=== PATIENT | male | born 1950 | race Caucasian/White ===

== ENCOUNTER → 2018-08-01 | Day surgery (SDC) | payer MEDICARE, OTHER ==
[2018-07-27 15:01] LABS: BASOPHILS % 0.5 % (0.0-1.0); EOSINOPHILS # (AUTO) 0.2 (0.0-0.4); EOSINOPHILS % 2.3 % (0.0-6.0); HEMATOCRIT 45.4 % (38.2-49.6); HEMOGLOBIN 14.8 g/dL (14.0-18.0); LYMPHOCYTES # (AUTO) 2.5 (1.0-3.2); LYMPHOCYTES % 31.7 % (18.0-39.1); MEAN CORPUSCULAR HEMOGLOBIN 30.5 pg (28-32); MEAN CORPUSCULAR HGB CONC 32.6 g/dL (31-35); MEAN CORPUSCULAR VOLUME 93.6 fL (81-99); MONOCYTES # (AUTO) 0.6 (0.2-0.8); MONOCYTES % 7.8 % (4.4-11.3); NEUTROPHILS # (AUTO) 4.5 (2.1-6.9); NEUTROPHILS % 57.3 % (38.7-80.0); PLATELET COUNT 169 x10e3/uL (140-360); RED BLOOD COUNT 4.85 x10e6/uL (4.3-5.7); RED CELL DISTRIBUTION WIDTH 14.6 % (11.7-14.4)
[~2018-08-01] MED LIST: ASPIR 8181 MG PO; FENTANYL CITRATE/PF 100MCG/2 ML INJ ONE; GABAPENTIN300 MG PO; GLIPIZIDE5 MG PO; HYOSCYAMINE SULFATE 0.5 MG/ML INJ ONE; LIPITOR10 MG PO; LISINOPRIL10 MG PO; MIDAZOLAM HCL 2 MG/2 ML VIAL ONE; PHENYLEPHRINE HCL 1% 10 MG/ML VIAL ONE; PLAVIX75 MG PO; PROPOFOL IV EMULSION 10 MG/ML 50 ML VIAL ONE
--- OUTSIDE RECORDS SUMMARY | 2018-08-01 07:01 | XMS REPORT ---
Author Author [facility] Address Unknown Phone Unavailable Care Team Providers Care Feed Crusher Name Role Phone Unavailable Unavailable Payers Payer Name Policy Type Policy Number Effective Date Expiration Date Problems This patient has no known problems. Allergies, Adverse Reactions, Alerts Allergy Name Allergy Type Status Severity Reaction(s) Onset Date Inactive Date Treating Clinician Comments gabapentin DA Active [place] 2018-05-12 00:00:00 Medications This patient has no known medications.
--- OUTSIDE RECORDS SUMMARY | 2018-08-01 07:01 | XMS REPORT | Clinical Summary ---
Author Author [facility] Address Unknown Phone Unavailable Care Team Providers Care Salvage Winder And Inspector Name Role Phone Asif Hernandez MD PCP Allergies No Known Allergies Medications End Date Status Medication Sig Dispensed Refills Start Date Active atorvastatin (LIPITOR) 80 Take 80 mg by 0 MG tablet mouth daily. Active glipiZIDE (GLUCOTROL) 10 Take 10 mg by 0 MG tablet mouth 2 (two) times a day before meals. Active aspirin (ECOTRIN) 81 MG Take 81 mg by 0 enteric coated tablet mouth daily. Active clopidogrel (PLAVIX) 75 Take 75 mg by 0 mg tablet mouth daily. Active lisinopril Take 1.5 45 tablet 0 (PRINIVIL,ZESTRIL) 10 mg tablets (15 8 tablet mg total) by mouth daily for 30 days. 06/03/2019 Active metoprolol tartrate Take 1 tablet 60 tablet 11 (LOPRESSOR) 25 mg tablet (25 mg total) 8 by mouth 2 (two) times a day. 06/03/2018 Discontinued lisinopril Take 10 mg by 0 (PRINIVIL,ZESTRIL) 10 mg mouth daily. tablet 06/17/2018 acetaminophen-codeine Take 1 tablet 15 tablet 0 (TYLENOL WITH CODEINE #3) by mouth 8 300-30 mg per tablet every 4 (four) hours as needed for moderate pain for up to 14 days. Active Problems Problem Noted Date Carotid stenosis 06/01/2018 Post-op pain 06/01/2018 S/P carotid endarterectomy 06/01/2018 Type 2 diabetes mellitus with diabetic peripheral angiopathy without 06/01/2018 gangrene, without long-term current use of insulin Tobacco use 06/01/2018 PVD (peripheral vascular disease) 06/01/2018 Essential hypertension 06/01/2018 Encounters Care Team Description Date Type Specialty Gary Lee Ann PAD (peripheral artery disease) (HCC) (Primary Dx) 06/21/2018 Orders Only Cardiovascular Gama Ramirez MD Persistent postoperative fistula, initial encounter (Primary Dx) 06/20/2018 Lab Lab Gama Ramirez MD Postoperative wound sinus, initial encounter (Primary Dx) 06/20/2018 Office Visit Cardiovascular Vanessa Hays, PharmD 06/06/2018 Patient Quality Outreach Gama Ramirez MD LEFT CAROTID ENDARTERECTOMY 06/01/2018 Surgery Cardiothoracic Surgery Shanna Trejo MD 06/01/2018 Anesthesia Cardiothoracic Surgery Event Gama Ramirez MD High dependence on smoking (Primary Dx); Arteriosclerosis of carotid artery, left; Stenosis of left carotid artery; S/P carotid endarterectomy 06/01/2018 Hospital Cardiovascular - Encounter 06/03/2018 Gama Ramirez MD Stenosis of left carotid artery (Primary Dx) 05/29/2018 Office Visit Cardiovascular after 07/31/2017 Immunizations Name Dates Previously Given Next Due FLUZONE HIGH-DOSE PF 06/03/2018 Family History Medical History Relation Name Comments Lung cancer Father Relation Name Status Comments Father Mother Social History Date Tobacco Use Types Packs/Day Years Used Current Every Day Smoker Cigarettes 2 54 Smokeless Tobacco: Never Used Alcohol Use Drinks/Week oz/Week Comments Yes occasional Sex Assigned at Date Recorded Not on file Industry Job Start Date Occupation Not on file Not on file Not on file Travel End Travel History Travel Start No recent travel history available. Last Filed Vital Signs Time Taken Vital Sign Reading 06/03/2018 7:21 AM APPLICATIONS SYSTEMS ANALYST Blood Pressure 164/80 06/03/2018 7:21 AM APPLICATIONS SYSTEMS ANALYST Pulse 66 06/03/2018 7:21 AM APPLICATIONS SYSTEMS ANALYST Temperature 36 C (96.8 F) 06/03/2018 7:21 AM APPLICATIONS SYSTEMS ANALYST Respiratory Rate 12 06/03/2018 7:21 AM APPLICATIONS SYSTEMS ANALYST Oxygen Saturation 98% - Inhaled Oxygen - Concentration 06/03/2018 4:44 AM APPLICATIONS SYSTEMS ANALYST Weight 89.1 kg (196 lb 8 oz) 06/01/2018 5:52 AM APPLICATIONS SYSTEMS ANALYST Height 185.4 cm (6' 1") 06/03/2018 4:44 AM APPLICATIONS SYSTEMS ANALYST Body Mass Index 25.93 Plan of Treatment Care Team Description Date Type Specialty Boris Kidd MD [address] [facility] [address] [place], [place] [id number] 08/14/2018 Appointment Procedural Cardiology Boris Kidd MD [address] [facility] [address] [place] [address] [phone] 08/14/2018 Office Visit Cardiovascular Health Maintenance Due Date Last Done Comments DIABETIC RETINAL EYE EXAM 1948 DIABETIC FOOT EXAM 1958 URINE MICROALBUMIN 1958 COLON CANCER SCREENING 1998 SHINGLES VACCINES (1 of 1998 2) PNEUMOCOCCAL 2013 POLYSACCHARIDE VACCINE AGE 65 AND OVER PNEUMOCOCCAL-13 2013 INFLUENZA VACCINE Completed 06/03/2018 Implants Device Identifier Shelf Expiration Date Model / Serial / Lot Implanted Type Area Manufactur er 01/10/2023 [id number] / / Clip Ligtng Weck Hemoclip Plus W/ Medical N/A: N/A TELEFLEX Tape Ti Med - [id number] Clips for MEDICAL Implanted: Qty: 1 on 06/01/2018 by Internal Gama Ramirez MD Use 03/14/2022 [id number] / / [id number] Kit Shunt Crtd Artery Rdopq Line Surgical N/A: N/A COVIDIEN 6in [place] - [id number] Implants; MARLI Implanted: 06/01/2018 (Quantity not Expanders; HEALTHCARE on file) Extenders; Surgical Wires 05/23/2022 [id number] / / [id number] Kit Shunt Crtd Artery Rdopq Line Surgical N/A: N/A COVIDIEN 6in [place] - [id number] Implants; MARLI Implanted: 06/01/2018 (Quantity not Expanders; HEALTHCARE on file) Extenders; Surgical Wires 12/22/2022 [id number] / / [id number] Fabric Vasclr Grft Velour 3in 3in Vascular N/A: N/A ATRIUM 0.8cm 7.6cm Scott Hemashield - Graft MEDICAL [id number] Implanted: Qty: 1 on 06/01/2018 by Gama Ramirez MD Procedures Comments Procedure Name Priority Date/Time Associated Diagnosis GRAM STAIN Routine 06/20/2018 4:30 PM APPLICATIONS SYSTEMS ANALYST AEROBIC CULTURE Routine 06/20/2018 Persistent postoperative 4:30 PM APPLICATIONS SYSTEMS ANALYST fistula, initial encounter POC GLUCOSE Routine 06/03/2018 8:03 AM APPLICATIONS SYSTEMS ANALYST CBC HEMOGRAM Routine 06/03/2018 5:22 AM APPLICATIONS SYSTEMS ANALYST ESTIMATED GFR Routine 06/03/2018 12:00 AM APPLICATIONS SYSTEMS ANALYST PHOSPHORUS LEVEL Routine 06/03/2018 12:00 AM APPLICATIONS SYSTEMS ANALYST IONIZED CALCIUM Routine 06/03/2018 12:00 AM APPLICATIONS SYSTEMS ANALYST MAGNESIUM LEVEL Routine 06/03/2018 12:00 AM APPLICATIONS SYSTEMS ANALYST BASIC METABOLIC PANEL Routine 06/03/2018 12:00 AM APPLICATIONS SYSTEMS ANALYST POC GLUCOSE Routine 06/02/2018 9:11 PM APPLICATIONS SYSTEMS ANALYST POC GLUCOSE Routine 06/02/2018 5:15 PM APPLICATIONS SYSTEMS ANALYST POC GLUCOSE Routine 06/02/2018 11:25 AM APPLICATIONS SYSTEMS ANALYST POC GLUCOSE Routine 06/02/2018 7:49 AM APPLICATIONS SYSTEMS ANALYST XR CHEST 1 VW PORTABLE Routine 06/02/2018 6:53 AM APPLICATIONS SYSTEMS ANALYST POC GLUCOSE Routine 06/02/2018 5:12 AM APPLICATIONS SYSTEMS ANALYST MAGNESIUM LEVEL Routine 06/02/2018 2:25 AM APPLICATIONS SYSTEMS ANALYST ESTIMATED GFR Routine 06/02/2018 2:25 AM APPLICATIONS SYSTEMS ANALYST PHOSPHORUS LEVEL Routine 06/02/2018 2:25 AM APPLICATIONS SYSTEMS ANALYST IONIZED CALCIUM Routine 06/02/2018 2:25 AM APPLICATIONS SYSTEMS ANALYST BASIC METABOLIC PANEL Routine 06/02/2018 2:25 AM APPLICATIONS SYSTEMS ANALYST HC COMPLETE BLD COUNT Routine 06/02/2018 W/AUTO DIFF 2:25 AM APPLICATIONS SYSTEMS ANALYST POC GLUCOSE Routine 06/02/2018 12:25 AM APPLICATIONS SYSTEMS ANALYST POC GLUCOSE Routine 06/01/2018 7:37 PM APPLICATIONS SYSTEMS ANALYST POC GLUCOSE Routine 06/01/2018 3:59 PM APPLICATIONS SYSTEMS ANALYST XR CHEST 1 VW PORTABLE Routine 06/01/2018 12:02 PM APPLICATIONS SYSTEMS ANALYST ECG 12-LEAD Routine 06/01/2018 11:33 AM APPLICATIONS SYSTEMS ANALYST POC GLUCOSE Routine 06/01/2018 10:44 AM APPLICATIONS SYSTEMS ANALYST ESTIMATED GFR Routine 06/01/2018 10:43 AM APPLICATIONS SYSTEMS ANALYST BASIC METABOLIC PANEL Routine 06/01/2018 10:43 AM APPLICATIONS SYSTEMS ANALYST PROTHROMBIN TIME WITH INR Routine 06/01/2018 10:43 AM APPLICATIONS SYSTEMS ANALYST PARTIAL THROMBOPLASTIN Routine 06/01/2018 TIME (PTT) 10:43 AM APPLICATIONS SYSTEMS ANALYST HC COMPLETE BLD COUNT Routine 06/01/2018 W/AUTO DIFF 10:43 AM APPLICATIONS SYSTEMS ANALYST IONIZED CALCIUM Routine 06/01/2018 10:43 AM APPLICATIONS SYSTEMS ANALYST PHOSPHORUS LEVEL Routine 06/01/2018 10:43 AM APPLICATIONS SYSTEMS ANALYST MAGNESIUM LEVEL Routine 06/01/2018 10:43 AM APPLICATIONS SYSTEMS ANALYST ARTERIAL LINE Routine 06/01/2018 10:38 AM APPLICATIONS SYSTEMS ANALYST ACTIVATED CLOTTING TIME Routine 06/01/2018 9:56 AM APPLICATIONS SYSTEMS ANALYST IONIZED CALCIUM, ARTERIAL STAT 06/01/2018 9:30 AM APPLICATIONS SYSTEMS ANALYST HEMOGLOBIN, SYRINGE STAT 06/01/2018 9:30 AM APPLICATIONS SYSTEMS ANALYST GLUCOSE LEVEL, SYRINGE STAT 06/01/2018 9:30 AM APPLICATIONS SYSTEMS ANALYST SODIUM LEVEL, SYRINGE STAT 06/01/2018 9:30 AM APPLICATIONS SYSTEMS ANALYST POTASSIUM, SYRINGE STAT 06/01/2018 9:30 AM APPLICATIONS SYSTEMS ANALYST ARTERIAL BLOOD GAS STAT 06/01/2018 9:30 AM APPLICATIONS SYSTEMS ANALYST ACTIVATED CLOTTING TIME Routine 06/01/2018 9:26 AM APPLICATIONS SYSTEMS ANALYST ACTIVATED CLOTTING TIME Routine 06/01/2018 9:20 AM APPLICATIONS SYSTEMS ANALYST ACTIVATED CLOTTING TIME Routine 06/01/2018 9:12 AM APPLICATIONS SYSTEMS ANALYST LACTIC ACID, SYRINGE STAT 06/01/2018 9:08 AM APPLICATIONS SYSTEMS ANALYST IONIZED CALCIUM, ARTERIAL STAT 06/01/2018 9:08 AM APPLICATIONS SYSTEMS ANALYST POTASSIUM, SYRINGE STAT 06/01/2018 9:08 AM APPLICATIONS SYSTEMS ANALYST GLUCOSE LEVEL, SYRINGE STAT 06/01/2018 9:08 AM APPLICATIONS SYSTEMS ANALYST HEMOGLOBIN, SYRINGE STAT 06/01/2018 9:08 AM APPLICATIONS SYSTEMS ANALYST SODIUM LEVEL, SYRINGE STAT 06/01/2018 9:08 AM APPLICATIONS SYSTEMS ANALYST ARTERIAL BLOOD GAS, STAT 06/01/2018 CORRECTED 9:08 AM APPLICATIONS SYSTEMS ANALYST ACTIVATED CLOTTING TIME Routine 06/01/2018 9:05 AM APPLICATIONS SYSTEMS ANALYST SURGICAL PATHOLOGY Routine 06/01/2018 REQUEST 8:57 AM APPLICATIONS SYSTEMS ANALYST IONIZED CALCIUM, ARTERIAL STAT 06/01/2018 8:03 AM APPLICATIONS SYSTEMS ANALYST GLUCOSE LEVEL, SYRINGE STAT 06/01/2018 8:03 AM APPLICATIONS SYSTEMS ANALYST POTASSIUM, SYRINGE STAT 06/01/2018 8:03 AM APPLICATIONS SYSTEMS ANALYST HEMOGLOBIN, SYRINGE STAT 06/01/2018 8:03 AM APPLICATIONS SYSTEMS ANALYST SODIUM LEVEL, SYRINGE STAT 06/01/2018 8:03 AM APPLICATIONS SYSTEMS ANALYST ARTERIAL BLOOD GAS STAT 06/01/2018 8:03 AM APPLICATIONS SYSTEMS ANALYST CENTRAL LINE Routine 06/01/2018 7:49 AM APPLICATIONS SYSTEMS ANALYST ARTERIAL LINE Routine 06/01/2018 7:46 AM APPLICATIONS SYSTEMS ANALYST ACTIVATED CLOTTING TIME Routine 06/01/2018 7:41 AM APPLICATIONS SYSTEMS ANALYST OH AN ELECTIVE Routine 06/01/2018 ENDOTRACHEAL AIRWAY 7:37 AM APPLICATIONS SYSTEMS ANALYST XR CHEST 1 VW PORTABLE STAT 06/01/2018 7:04 AM APPLICATIONS SYSTEMS ANALYST ECG PRE/POST OP Routine 06/01/2018 6:16 AM APPLICATIONS SYSTEMS ANALYST POC GLUCOSE Routine 06/01/2018 6:05 AM APPLICATIONS SYSTEMS ANALYST PREPARE RBC Timed 06/01/2018 5:37 AM APPLICATIONS SYSTEMS ANALYST PREPARE RBC Routine 06/01/2018 5:37 AM APPLICATIONS SYSTEMS ANALYST ESTIMATED GFR Routine 06/01/2018 5:37 AM APPLICATIONS SYSTEMS ANALYST TYPE AND SCREEN Routine 06/01/2018 5:37 AM APPLICATIONS SYSTEMS ANALYST HEMOGLOBIN A1C Routine 06/01/2018 5:37 AM APPLICATIONS SYSTEMS ANALYST PARTIAL THROMBOPLASTIN Routine 06/01/2018 TIME (PTT) 5:37 AM APPLICATIONS SYSTEMS ANALYST PROTHROMBIN TIME WITH INR Routine 06/01/2018 5:37 AM APPLICATIONS SYSTEMS ANALYST COMPREHENSIVE METABOLIC Routine 06/01/2018 PANEL 5:37 AM APPLICATIONS SYSTEMS ANALYST HC COMPLETE BLD COUNT Routine 06/01/2018 W/AUTO DIFF 5:37 AM APPLICATIONS SYSTEMS ANALYST after 07/31/2017 Results * Aerobic culture (06/20/2018 4:30 PM APPLICATIONS SYSTEMS ANALYST) Aerobic culture isolate Staphylococcus aureus [facility] This organism is Methicillin Resistant. (A) Comment: Specimen Information Specimen Source: Wound Specimen Site: Sinus Aerobic culture isolate Staphylococcus, coagulase [facility] () Specimen Wound - Sinus Antibiotic Method Susceptibility Organism Ampicillin BRENDEN mcg/mL: Resistant Staphylococcus aureus Clindamycin BRENDEN <=0.5 mcg/mL: Susceptible Staphylococcus aureus Cefazolin BRENDEN mcg/mL: Resistant Staphylococcus aureus Erythromycin BRENDEN >4 mcg/mL: Resistant Staphylococcus aureus Linezolid BRENDEN <=1 mcg/mL: Susceptible Staphylococcus aureus Minocycline BRENDEN <=1 mcg/mL: Susceptible Staphylococcus aureus Oxacillin BRENDEN >2 mcg/mL: Resistant Staphylococcus aureus Penicillin G BRENDEN >1 mcg/mL: Resistant Staphylococcus aureus Rifampin BRENDEN <=0.5 mcg/mL: Susceptible Staphylococcus aureus Trimethoprim/Sulfamethoxazole BRENDEN <=0.5/9.5 mcg/mL: Susceptible Staphylococcus aureus Tetracycline BRENDEN <=0.5 mcg/mL: Susceptible Staphylococcus aureus Vancomycin BRENDEN 1 mcg/mL: Susceptible Staphylococcus aureus Performing Organization Address City/[facility] Phone Number [facility] DEPARTMENT OF [address] [place] [address] PATHOLOGY AND GENOMIC MEDICINE [address] * Gram stain (06/20/2018 4:30 PM APPLICATIONS SYSTEMS ANALYST) Gram stain isolate Occasional WBC's RASHARD NOIST Rare Gram positive cocci in HOSPITAL clusters Comment: Specimen Information Specimen Source: Wound Specimen Site: Sinus Specimen Wound - Sinus Performing Organization Address [facility] Phone Number [facility] DEPARTMENT OF [address] [place] [address] PATHOLOGY AND GENOMIC MEDICINE [address] * POC glucose (06/03/2018 8:03 AM APPLICATIONS SYSTEMS ANALYST) Only the most recent of 11 results within the time period is included. POC glucose 176 (H) 65 - 99 mg/dL [facility] DEPARTMENT OF Comment: PATHOLOGY AND [facility] Notified RN GENOMIC MEDICINE Meter ID: [id number] Gear Repair Supervisor: Jasmyn Ramirez Performing Organization Address [facility] Phone Number [facility] DEPARTMENT OF [address] [place] [address] PATHOLOGY AND GENOMIC MEDICINE * CBC hemogram (06/03/2018 5:22 AM APPLICATIONS SYSTEMS ANALYST) WBC 9.02 4.50 - 11.00 k/uL [facility] DEPARTMENT OF PATHOLOGY AND GENOMIC MEDICINE RBC 4.11 (L) 4.40 - 6.00 m/uL [facility] DEPARTMENT OF PATHOLOGY AND GENOMIC MEDICINE HGB 12.2 (L) 14.0 - 18.0 g/dL [facility] DEPARTMENT OF PATHOLOGY AND GENOMIC MEDICINE HCT 37.6 (L) 41.0 - 51.0 % [facility] DEPARTMENT OF PATHOLOGY AND GENOMIC MEDICINE MCV 91.5 82.0 - 100.0 fL [facility] DEPARTMENT OF PATHOLOGY AND GENOMIC MEDICINE MCH 29.7 27.0 - 34.0 pg [facility] DEPARTMENT OF PATHOLOGY AND GENOMIC MEDICINE MCHC 32.4 31.0 - 37.0 g/dL [facility] DEPARTMENT OF PATHOLOGY AND GENOMIC MEDICINE RDW - SD 49.4 37.0 - 55.0 fL [facility] DEPARTMENT OF PATHOLOGY AND GENOMIC MEDICINE MPV 10.6 8.8 - 13.2 fL [facility] DEPARTMENT OF PATHOLOGY AND GENOMIC MEDICINE Platelet count 137 (L) 150 - 400 k/uL [facility] DEPARTMENT OF PATHOLOGY AND GENOMIC MEDICINE Nucleated RBC 0.00 /100 WBC [facility] DEPARTMENT OF PATHOLOGY AND GENOMIC MEDICINE Specimen Blood Performing Organization Address City/[facility] [place] [address] PATHOLOGY AND [employer] MEDICINE * Estimated GFR (06/03/2018 12:00 AM APPLICATIONS SYSTEMS ANALYST) Only the most recent of 4 results within the time period is included. Estimated GFR 82 mL/min/1.73 m2 [facility] DEPARTMENT OF Comment: PATHOLOGY AND [employer] GENOMIC MEDICINE rpretation G1 >=90 Normal or high G2 60-89Mildly decreased P1z18-85 Mildly to moderately decreased H1x24-34 Moderately to severely decreased G4 15-29Severely decreased G5 <15Kidney failure The eGFR was calculated using the Chronic Kidney Disease Epidemiology Collaboration (CKD-EPI) equation. Interpretation is based on recommendations of the National Kidney Foundation-Kidney Disease Outcomes Quality Initiative (NKF-KDOQI) published in 2014. Specimen Plasma specimen Performing Organization Address City/[facility] Phone Number [facility] [place] [address] PATHOLOGY AND [employer] MEDICINE * Phosphorus level (06/03/2018 12:00 AM APPLICATIONS SYSTEMS ANALYST) Only the most recent of 3 results within the time period is included. Phosphorus 3.4 2.4 - 4.5 mg/dL [facility] DEPARTMENT OF PATHOLOGY AND GENOMIC MEDICINE Specimen Plasma specimen Performing Organization Address City/[facility] Phone Number [facility] [place] [address] PATHOLOGY AND [employer] MEDICINE * Magnesium level (06/03/2018 12:00 AM APPLICATIONS SYSTEMS ANALYST) Only the most recent of 3 results within the time period is included. Magnesium 2.1 1.6 - 2.4 mg/dL [facility] DEPARTMENT OF PATHOLOGY AND GENOMIC MEDICINE Specimen Plasma specimen Performing Organization Address City/[facility] [place] [address] PATHOLOGY AND [facility] * Ionized calcium (06/03/2018 12:00 AM APPLICATIONS SYSTEMS ANALYST) Only the most recent of 3 results within the time period is included. pH 7.38 [facility] DEPARTMENT OF PATHOLOGY AND GENOMIC MEDICINE Ionized calcium 1.14 1.11 - 1.32 mmol/L [facility] DEPARTMENT OF PATHOLOGY AND GENOMIC MEDICINE Specimen Plasma specimen Performing Organization Address City/[facility] Phone Number [facility] [place] [address] PATHOLOGY AND GENOMIC MEDICINE * Basic metabolic panel (06/03/2018 12:00 AM APPLICATIONS SYSTEMS ANALYST) Only the most recent of 3 results within the time period is included. Sodium 139 135 - 148 mEq/L [facility] DEPARTMENT OF PATHOLOGY AND GENOMIC MEDICINE Potassium 4.4 3.5 - 5.0 mEq/L [facility] DEPARTMENT OF PATHOLOGY AND GENOMIC MEDICINE Chloride 104 98 - 112 mEq/L [facility] DEPARTMENT OF PATHOLOGY AND GENOMIC MEDICINE CO2 23 (L) 24 - 31 mEq/L [facility] DEPARTMENT OF PATHOLOGY AND GENOMIC MEDICINE Anion gap 12@ANIO 7 - 15 mEq/L [facility] DEPARTMENT OF PATHOLOGY AND GENOMIC MEDICINE BUN 17 8 - 23 mg/dL [facility] DEPARTMENT OF PATHOLOGY AND GENOMIC MEDICINE Creatinine 0.94 0.70 - 1.20 mg/dL [facility] DEPARTMENT OF PATHOLOGY AND GENOMIC MEDICINE Glucose 132 (H) 65 - 99 mg/dL [facility] DEPARTMENT OF PATHOLOGY AND GENOMIC MEDICINE Calcium 9.0 8.8 - 10.2 mg/dL [facility] DEPARTMENT OF PATHOLOGY AND GENOMIC MEDICINE Specimen Plasma specimen Performing Organization Address City/[facility] Phone Number [facility] [place] [address] PATHOLOGY AND GENOMIC MEDICINE * XR Chest 1 Vw Portable (06/02/2018 6:53 AM APPLICATIONS SYSTEMS ANALYST) Only the most recent of 3 results within the time period is included. Narrative Performed At EXAMINATION:XR CHEST 1 VW PORTABLE RADIANT CLINICAL HISTORY:ICU ptstable with no clinical status changes COMPARISON:June 01, 2018 IMPRESSION: Support devices project in stable position. [id number] Procedure Note Interface, Radiology Results Incoming - 06/02/2018 7:26 AM APPLICATIONS SYSTEMS ANALYST EXAMINATION: XR CHEST 1 VW PORTABLE CLINICAL HISTORY: ICU pt stable with no clinical status changes COMPARISON: June 01, 2018 IMPRESSION: Support devices project in stable position. [id number] Performing Organization Address City/[facility]/Zipcode Phone Number [facility] [address] [place] [address] * CBC with platelet and differential (06/02/2018 2:25 AM APPLICATIONS SYSTEMS ANALYST) Only the most recent of 3 results within the time period is included. WBC 8.49 4.50 - 11.00 k/uL [facility] DEPARTMENT OF PATHOLOGY AND GENOMIC MEDICINE RBC 3.92 (L) 4.40 - 6.00 m/uL [facility] DEPARTMENT OF PATHOLOGY AND GENOMIC MEDICINE HGB 11.7 (L) 14.0 - 18.0 g/dL [facility] DEPARTMENT OF PATHOLOGY AND GENOMIC MEDICINE HCT 35.4 (L) 41.0 - 51.0 % [facility] DEPARTMENT OF PATHOLOGY AND GENOMIC MEDICINE MCV 90.3 82.0 - 100.0 fL [facility] DEPARTMENT OF PATHOLOGY AND GENOMIC MEDICINE MCH 29.8 27.0 - 34.0 pg [facility] DEPARTMENT OF PATHOLOGY AND GENOMIC MEDICINE MCHC 33.1 31.0 - 37.0 g/dL [facility] DEPARTMENT OF PATHOLOGY AND GENOMIC MEDICINE RDW - SD 47.9 37.0 - 55.0 fL [facility] DEPARTMENT OF PATHOLOGY AND GENOMIC MEDICINE MPV 10.3 8.8 - 13.2 fL [facility] DEPARTMENT OF PATHOLOGY AND GENOMIC MEDICINE Platelet count 123 (L) 150 - 400 k/uL [facility] DEPARTMENT OF PATHOLOGY AND GENOMIC MEDICINE Nucleated RBC 0.00 /100 WBC [facility] DEPARTMENT OF PATHOLOGY AND GENOMIC MEDICINE Neutrophils 72.8 (H) 39.0 - 69.0 % [facility] DEPARTMENT OF PATHOLOGY AND GENOMIC MEDICINE Lymphocytes 17.8 (L) 25.0 - 45.0 % [facility] DEPARTMENT OF PATHOLOGY AND GENOMIC MEDICINE Monocytes 6.5 0.0 - 10.0 % [facility] DEPARTMENT OF PATHOLOGY AND GENOMIC MEDICINE Eosinophils 2.5 0.0 - 5.0 % [facility] DEPARTMENT OF PATHOLOGY AND GENOMIC MEDICINE Basophils 0.2 0.0 - 1.0 % [facility] DEPARTMENT OF PATHOLOGY AND GENOMIC MEDICINE Immature granulocytes 0.2Comment: "Immature 0.0 - 1.0 % [facility] DEPARTMENT OF granulocytes" (promyelocytes, PATHOLOGY AND myelocytes, metamyelocytes) [facility] Specimen Blood Performing Organization Address City/State/Zipcode Phone Number [facility] DEPARTMENT OF [address] [place] [address] PATHOLOGY AND GENOMIC MEDICINE * ECG 12 lead (06/01/2018 11:33 AM APPLICATIONS SYSTEMS ANALYST) Ventricular rate 100 [facility] Atrial rate 100 [facility] OH interval 146 [facility] QRSD interval 108 [facility] QT interval 374 [facility] QTC interval 482 [facility] M[facility] P axis 1 35 [facility] QRS axis 1 -36 [facility] M[facility] T wave axis 82 [facility] EKG impression Normal sinus rhythm-Left axis [facility] deviation-Septal infarct (cited on or before 01-JUN-2018)-Abnormal ECG-In automated comparison with ECG of 01-JUN-2018 06:16,-Questionable change in initial forces of Septal leads-ST no longer depressed in Inferior leads-ST no longer elevated in Lateral leads-T wave inversion no longer evident in Anterior leads- Performing Organization Address [facility] Phone Number [facility] [address] [place] [phone] * Partial thromboplastin time, activated (06/01/2018 10:43 AM APPLICATIONS SYSTEMS ANALYST) Only the most recent of 2 results within the time period is included. PTT 25.9 23.0 - 36.0 sec [facility] DEPARTMENT OF Comment: PATHOLOGY AND PTT therapeutic range for [facility] unfractionated heparin is 61.0-112.0 seconds which corresponds to Anti-Xa 0.3-0.7 U/ml. Specimen Blood Performing Organization Address [facility] Phone Number [facility] DEPARTMENT OF [address] [place] [address] PATHOLOGY AND [employer] MEDICINE * Prothrombin time with INR (06/01/2018 10:43 AM APPLICATIONS SYSTEMS ANALYST) Only the most recent of 2 results within the time period is included. Prothrombin time 15.3 (H) 11.5 - 14.5 sec [facility] DEPARTMENT OF PATHOLOGY AND GENOMIC MEDICINE INR 1.2 [facility] DEPARTMENT OF Comment: PATHOLOGY AND The International Normalized GENOMIC MEDICINE Ratio (INR) is a therapeutic monitoring tool for patients who are stable on oral anticoagulant therapy. An INR of 2.0-3.0 is suggested for deep vein thrombosis/pulmonary embolism. Specimen Blood Performing Organization Address [facility] Phone Number [facility] DEPARTMENT OF [address] [place] [address] PATHOLOGY AND GENOMIC MEDICINE * Arterial line (06/01/2018 10:38 AM APPLICATIONS SYSTEMS ANALYST) Narrative Performed At Tom Charles MD 06/01/2018 10:39 AM Arterial line Performed by: TOM CHARLES Authorized by: AMANDA CORONA V. Patient Location:OR Start Time:06/01/2018 10:38 AM End Time:06/01/2018 10:38 AM Staff: Anesthesiologist:AMANDA CORONA V. Performed by:Anesthesiologist Pre-procedure: patient identified, IV checked, site and side verified, risks and benefits discussed, procedure verified, surgical consent complete, patient position confirmed, monitors and equipment checked and pre-op evaluation complete MSBT: antiseptic used, all elements of maximal sterile barrier technique followed and hand hygiene performed Indications: Indications: multiple ABGs and hemodynamic monitoring Anesthesia: Anesthesia:General Procedure Details: Arterial Line placement:Placed post induction Line placement site:Radial Line placement side:Left Arterial line gauge:20 G Number of attempts:1 Ultrasound guidance used: No Post-procedure: Post-procedure:Sterile dressing applied Post procedure circulation, sensation, movement:Normal Patient tolerance:Patient tolerated the procedure well with no immediate complications Notes: Initial R. Radial a line clotted off, placed a new on talib the L. radial * Activated clotting time (06/01/2018 9:56 AM APPLICATIONS SYSTEMS ANALYST) Only the most recent of 6 results within the time period is included. Activated clotting time 109 96 - 152 sec [facility] DEPARTMENT OF Comment: PATHOLOGY AND Meter ID: [id number] GENOMIC MEDICINE Gear Repair Supervisor: Vidhi Spangler Performing Organization Address [facility] Facility[facility] Phone Number [facility] DEPARTMENT OF [address] [place] [address] PATHOLOGY AND GENOMIC MEDICINE * Sodium level, syringe (06/01/2018 9:30 AM APPLICATIONS SYSTEMS ANALYST) Only the most recent of 3 results within the time period is included. Sodium, syringe 138 135 - 148 mEq/L [facility] DEPARTMENT OF PATHOLOGY AND GENOMIC MEDICINE Specimen Blood Performing Organization Address [facility]/Zipcode Phone Number [facility] [place] [address] PATHOLOGY AND GENOMIC MEDICINE * Potassium, syringe (06/01/2018 9:30 AM APPLICATIONS SYSTEMS ANALYST) Only the most recent of 3 results within the time period is included. Potassium, syringe 4.2 3.5 - 5.0 mEq/L [facility] DEPARTMENT OF PATHOLOGY AND GENOMIC MEDICINE Specimen Blood Performing Organization Address City/[facility] Facilitycode [place] [address] PATHOLOGY AND GENOMIC MEDICINE * Ionized calcium, arterial (06/01/2018 9:30 AM APPLICATIONS SYSTEMS ANALYST) Only the most recent of 3 results within the time period is included. Ionized calcium, arterial 1.02 (L) 1.11 - 1.32 mmol/L [facility] DEPARTMENT OF PATHOLOGY AND GENOMIC MEDICINE Specimen Blood Performing Organization Address City/[facility] Facility[facility] [place] [address] PATHOLOGY AND [facility] * Hemoglobin, syringe (06/01/2018 9:30 AM APPLICATIONS SYSTEMS ANALYST) Only the most recent of 3 results within the time period is included. Hemoglobin, syringe 12.1 (L) 14.0 - 18.0 g/dL [facility] DEPARTMENT OF PATHOLOGY AND GENOMIC MEDICINE Specimen Blood Performing Organization Address City/[facility] Facilitycode [place] [address] PATHOLOGY AND [facility] * Glucose level, syringe (06/01/2018 9:30 AM APPLICATIONS SYSTEMS ANALYST) Only the most recent of 3 results within the time period is included. Glucose, syringe 198 (H) 65 - 99 mg/dL [facility] DEPARTMENT OF PATHOLOGY AND GENOMIC MEDICINE Specimen Blood Performing Organization Address City/[facility] Facility[facility]a Phone Number [facility] [place] [address] PATHOLOGY AND [facility] MEDICINE * Arterial blood gas (06/01/2018 9:30 AM APPLICATIONS SYSTEMS ANALYST) Only the most recent of 2 results within the time period is included. pH, arterial 7.24 (L) 7.35 - 7.45 [facility] DEPARTMENT OF PATHOLOGY AND GENOMIC MEDICINE pCO2, arterial 44 35 - 45 mmHg [facility] DEPARTMENT OF PATHOLOGY AND GENOMIC MEDICINE pO2, arterial 337 (H) 80 - 90 mmHg [facility] DEPARTMENT OF PATHOLOGY AND GENOMIC MEDICINE Bicarbonate, arterial 18.5 (L) 21.0 - 28.0 mmol/L [facility] DEPARTMENT OF PATHOLOGY AND GENOMIC MEDICINE Base excess, arterial -8 (L) -2 - 2 mEq/L [facility] DEPARTMENT OF PATHOLOGY AND GENOMIC MEDICINE O2 saturation, arterial 97 95 - 100 % [facility] DEPARTMENT OF PATHOLOGY AND GENOMIC MEDICINE Specimen Blood Performing Organization Address City/[facility] Facility[facility] [place] [address] PATHOLOGY AND GENOMIC MEDICINE * Lactic acid, syringe (06/01/2018 9:08 AM APPLICATIONS SYSTEMS ANALYST) Lactic acid, syringe 1.0 0.5 - 2.2 mmol/L [facility] DEPARTMENT OF PATHOLOGY AND GENOMIC MEDICINE Specimen Blood Performing Organization Address City/[facility] Facilitycode Phone Number [facility] [place] [address] PATHOLOGY AND GENOMIC MEDICINE * Arterial blood gas, corrected (06/01/2018 9:08 AM APPLICATIONS SYSTEMS ANALYST) pH, arterial 7.27 (L) 7.35 - 7.45 [facility] DEPARTMENT OF PATHOLOGY AND GENOMIC MEDICINE pCO2, arterial 44 35 - 45 mmHg [facility] DEPARTMENT OF PATHOLOGY AND GENOMIC MEDICINE pO2, arterial 230 (H) 80 - 90 mmHg [facility] DEPARTMENT OF PATHOLOGY AND GENOMIC MEDICINE Temperature, Celsius 36.9 Degrees C [facility] DEPARTMENT OF PATHOLOGY AND GENOMIC MEDICINE O2 saturation, arterial 99 95 - 100 % [facility] DEPARTMENT OF PATHOLOGY AND GENOMIC MEDICINE pH, arterial corrected 7.28 [facility] DEPARTMENT OF PATHOLOGY AND GENOMIC MEDICINE pCO2, arterial corrected 44 mmHg [facility] DEPARTMENT OF PATHOLOGY AND GENOMIC MEDICINE pO2, arterial corrected 229 mmHg [facility] DEPARTMENT OF PATHOLOGY AND GENOMIC MEDICINE Base excess, arterial -7 (L) -2 - 2 mEq/L [facility] DEPARTMENT OF PATHOLOGY AND GENOMIC MEDICINE Specimen Blood Performing Organization Address [facility] Phone Number [facility] [place] [address] PATHOLOGY AND GENOMIC MEDICINE * Surgical pathology request (06/01/2018 8:57 AM APPLICATIONS SYSTEMS ANALYST) [facility] DEPARTMENT OF PATHOLOGY AND GENOMIC MEDICINE Surgical pathology report See link below for PDF Lab [facility] DEPARTMENT OF Report PATHOLOGY AND GENOMIC MEDICINE Result status This is Final Report for [facility] DEPARTMENT OF [id number] PATHOLOGY AND GENOMIC MEDICINE Performing Organization Address City/[facility] Facilitycode [place] [address] PATHOLOGY AND GENOMIC MEDICINE * Central line (06/01/2018 7:49 AM APPLICATIONS SYSTEMS ANALYST) Narrative Performed At Shanna Trejo MD 06/01/20187:53 AM Central line Performed by: SHANNA TREJO Authorized by: AMANDA CORONA V. Patient Location:OR Start Time:06/01/2018 7:49 AM End Time:06/01/2018 7:49 AM Staff: Anesthesiologist:AMANDA CORONA V. Resident/CITY SUPERVISOR/AA:SHANNA TREJO Preprocedure:patient identified, IV checked, site and side verified, risks and benefits discussed, procedure verified, surgical consent complete, patient position confirmed, monitors and equipment checked and pre-op evaluation complete MSBT: antiseptic used during central venous catheter insertion, all elements of maximal sterile barrier technique followed, hand hygiene performed prior to central venous catheter insertion, cap/gown used by other personnel during central venous catheter insertion, solutions labeled and all ports not used during insertion clamped TIme Out Performed:06/01/2018 7:50 AM Indications: Indications:Central pressure monitoring and vascular access Anesthesia: Anesthesia:General Procedure details: Patient position:Trendelenburg Catheter Type:Double lumen Catheter Size:8 Fr Catheter Site: internal jugular vein Catheter site laterality:Right Ultrasound guidance used: Yes Ultrasound image saved: Yes Number of attempts:1 Successful placement: Yes Guidewire removal: Guidewire removal is confirmed Guidewire removal witnessed by:TOM CHARLES Post-procedure: Post-procedure: line sutured, sterile dressing applied per protocol and ports flushed with saline Post-procedure:Sterile caps on all hubs Assessment:Blood return through all ports Patient tolerance:Patient tolerated the procedure well with no immediate complications * Arterial line (06/01/2018 7:46 AM APPLICATIONS SYSTEMS ANALYST) Narrative Performed At Shanna Trejo MD 06/01/20187:46 AM Arterial line Performed by: SHANNA TREJO Authorized by: AMANDA CORONA V. Patient Location:OR Start Time:06/01/2018 7:46 AM End Time:06/01/2018 7:46 AM Staff: Anesthesiologist:AMANDA CORONA V. Resident/CITY SUPERVISOR/AA:SHANNA TREJO Pre-procedure: patient identified, IV checked, site and side verified, risks and benefits discussed, procedure verified, surgical consent complete, patient position confirmed, monitors and equipment checked and pre-op evaluation complete MSBT: antiseptic used, all elements of maximal sterile barrier technique followed and hand hygiene performed TIme Out Performed:06/01/2018 7:46 AM Indications: Indications: multiple ABGs and hemodynamic monitoring Anesthesia: Anesthesia:General Procedure Details: Arterial Line placement:Placed post induction Line placement site:Radial Line placement side:Right Arterial line gauge:20 G Number of attempts:1 Ultrasound guidance used: No Post-procedure: Post-procedure:Sterile dressing applied Post procedure circulation, sensation, movement:Normal Patient tolerance:Patient tolerated the procedure well with no immediate complications * ANESTHESIA INTUBATION (06/01/2018 7:37 AM APPLICATIONS SYSTEMS ANALYST) Narrative Performed At Shanna Trejo MD 06/01/20187:38 AM Airway Date/Time: 06/01/2018 7:37 AM Performed by: SHANNA TREJO Authorized by: AMANDA CORONA V. Location:OR Urgency:Elective Difficult Airway: No Preoxygenated with 100% O2: Yes C-spine Precautions Maintained Throughout: No Mask Ventilation:Assisted mask Final Airway Type:Endotracheal airway Final Endotracheal Airway:ETT Cuffed: Yes Technique Used:Direct laryngoscopy Devices/Methods Used in Placement:Intubating stylet Insertion Site:Oral Blade Type:[place] Laryngoscope Blade/Videolaryngoscope Blade Size:2 ETT Size (mm):8.0 Cuff at minimum occlusion pressure: Yes Measured from:Gums ETT to Gums (cm):22 Placement Verified by: CO2 detection Laryngoscopic view:Grade I - full view of glottis Rapid Sequence Induction (RSI): No Modified RSI: No Number of Attempts at Approach:1 * ECG Pre/Post Op (06/01/2018 6:16 AM APPLICATIONS SYSTEMS ANALYST) Ventricular rate 77 [facility] Atrial rate 77 [facility] OH interval 122 [facility] QRSD interval 96 [facility] QT interval 404 [facility] QTC interval 457 [facility] P axis 1 36 [facility] QRS axis 1 -39 [facility] T wave axis 48 [facility] EKG impression Normal sinus rhythm-Left axis [facility] deviation-Minimal voltage criteria for LVH, may be normal variant-Abnormal ECG-No previous ECGs available- Performing Organization Address City/State/Zipcode Phone Number [facility] [address] [place] [address] * Prepare RBC (06/01/2018 5:37 AM APPLICATIONS SYSTEMS ANALYST) Product name Red Blood Cells -1, Leukored [facility] Unit number [id number] [facility] Product code [id number] [facility] Dispense status Returned to BB not transfused [facility] Blood expiration date [facility] Blood type code 6200 [facility] Blood type A POSITIVE [facility] Product name Red Blood Cells -1, Leukored [facility] Unit number [id number] [facility] Product code [id number] [facility] Dispense status Returned to BB not transfused [facility] Blood expiration date [facility] Blood type code 6200 [facility] Blood type A POSITIVE [facility] Performing Organization Address City/[facility] Facility[facility] Phone Number [facility] [place] [address] PATHOLOGY [place] [address] HOSPITAL * Type and screen (06/01/2018 5:37 AM APPLICATIONS SYSTEMS ANALYST) ABO grouping A [facility] DEPARTMENT OF PATHOLOGY AND GENOMIC MEDICINE Rh type POS [facility] DEPARTMENT OF PATHOLOGY AND GENOMIC MEDICINE Antibody screen (gel) NEG [facility] DEPARTMENT OF PATHOLOGY AND GENOMIC MEDICINE Specimen Blood Performing Organization Address City/[facility] Phone Number [facility] [place] [address] PATHOLOGY AND GENOMIC MEDICINE * Hemoglobin A1c (06/01/2018 5:37 AM APPLICATIONS SYSTEMS ANALYST) Hemoglobin A1C 7.0 (H) 4.0 - 5.6 % [facility] DEPARTMENT OF Comment: PATHOLOGY AND HbA1c cutoffs for diagnosing GENOMIC MEDICINE diabetes: 4.0% - 5.6%=normal 5.7% - 6.4%=increased risk for diabetes (prediabetes) >=6.5%=diabetes Goals for glycemic control (ADA 2016) < 7.0%Target for non adults with diabetes. More or less stringent targets may be appropriate for individual patients. <7.5% Target for Children and adolescents with type 1 diabetes. Specimen Blood Performing Organization Address City/State/Zipcode Phone Number [facility] DEPARTMENT [address] [address] PATHOLOGY AND GENOMIC MEDICINE * Comprehensive metabolic panel (06/01/2018 5:37 AM APPLICATIONS SYSTEMS ANALYST) Sodium 139 135 - 148 mEq/L [facility] DEPARTMENT OF PATHOLOGY AND GENOMIC MEDICINE Potassium 4.1 3.5 - 5.0 mEq/L [facility] DEPARTMENT OF PATHOLOGY AND GENOMIC MEDICINE Chloride 106 98 - 112 mEq/L [facility] DEPARTMENT OF PATHOLOGY AND GENOMIC MEDICINE CO2 19 (L) 24 - 31 mEq/L [facility] DEPARTMENT OF PATHOLOGY AND GENOMIC MEDICINE Anion gap 14@ANIO 7 - 15 mEq/L [facility] DEPARTMENT OF PATHOLOGY AND GENOMIC MEDICINE BUN 23 8 - 23 mg/dL [facility] DEPARTMENT OF PATHOLOGY AND GENOMIC MEDICINE Creatinine 1.09 0.70 - 1.20 mg/dL [facility] DEPARTMENT OF PATHOLOGY AND GENOMIC MEDICINE Glucose 161 (H) 65 - 99 mg/dL [facility] DEPARTMENT OF PATHOLOGY AND GENOMIC MEDICINE Calcium 8.9 8.8 - 10.2 mg/dL [facility] DEPARTMENT OF PATHOLOGY AND GENOMIC MEDICINE Protein 6.8 6.3 - 8.3 g/dL [facility] DEPARTMENT OF Comment: PATHOLOGY AND [place] GENOMIC MEDICINE 4.6-7.0 g/dL 1 week 4.4-7.6 g/dL 7 months-1year 5.1-7.3 g/dL 1-2 years5.6-7 .5 g/dL >3 years6.0-8 .0 g/dL 18-150 6.3-8.3 g/dL Albumin 3.6 3.5 - 5.0 g/dL [facility] DEPARTMENT OF PATHOLOGY AND GENOMIC MEDICINE A/G ratio 1.1 0.7 - 3.8 [facility] DEPARTMENT OF PATHOLOGY AND GENOMIC MEDICINE Alkaline phosphatase 88 40 - 129 U/L [facility] DEPARTMENT OF PATHOLOGY AND GENOMIC MEDICINE AST 38 10 - 50 U/L [facility] DEPARTMENT OF PATHOLOGY AND GENOMIC MEDICINE ALT 52 (H) 5 - 50 U/L [facility] DEPARTMENT OF PATHOLOGY AND GENOMIC MEDICINE Total bilirubin <0.2 0.0 - 1.2 mg/dL [facility] DEPARTMENT OF PATHOLOGY AND GENOMIC MEDICINE Specimen Plasma specimen Performing Organization Address City/State/Zipcode Phone Number [address] [address] PATHOLOGY AND GENOMIC MEDICINE after 07/31/2017 Insurance Payer Benefit Subscriber ID Type Phone Address Plan / Group MEDICARE MEDICARE xxxxxxxxxxx Medicare [place], [place] PART A AND B COMMERCIAL MISC MISC xxxxxxxxxx Commercial [place] [id number] Advance Directives Patient has advance care planning documents on file. For more information, solitario izquierdo contact: Rashard Muñiz [address] [place] [address]
[2018-08-01 09:45] VITALS: BP 146/82
== END | disposition home or self-care (01) ==
LOC: OR 06:57
PROVIDERS: ATTEND Internal Medicine Gastroenterology
DX: Z12.11 Encounter for screening for malignant neoplasm of colon (principal); D12.2 Benign neoplasm of ascending colon; D12.3 Benign neoplasm of transverse colon; D12.4 Benign neoplasm of descending colon; D12.5 Benign neoplasm of sigmoid colon; K64.8 Other hemorrhoids; Z86.73 Personal history of transient ischemic attack (TIA), and cerebral infarction without residual deficits; I83.90 Asymptomatic varicose veins of unspecified lower extremity; E78.5 Hyperlipidemia, unspecified; G62.9 Polyneuropathy, unspecified; I10 Essential (primary) hypertension; E11.9 Type 2 diabetes mellitus without complications; F17.210 Nicotine dependence, cigarettes, uncomplicated; Z88.6 Allergy status to analgesic agent; Z01.810 Encounter for preprocedural cardiovascular examination; Z01.812 Encounter for preprocedural laboratory examination; Z79.02 Long term (current) use of antithrombotics/antiplatelets; Z79.84 Long term (current) use of oral hypoglycemic drugs; Z79.82 Long term (current) use of aspirin
CPT/HCPCS: 36415 ×2; 45384; 45385; 82948; 85025; 88305; 93005; J1980; J2250; J2370; 45378